=== PATIENT | male | born 1960 | race Caucasian/White ===

== ENCOUNTER 2021-08-23 21:02 | Emergency (ER) | payer OTHER ==
[~2021-08-23] VITALS: Ht 167.6 cm; Wt 89.8 kg
--- NOTE | 2021-08-23 21:50 | NUR ---
to bed 7. a/ox3. c/o generalized rash on BLE BUE AND ABDOMEN. STARTED 1 WEEK AGO. PATIENT STATES HIS STARTED USING A NEW DETERGANT AT HOME. PATIENT WAS EDUCATED TO STOP USING THE DETERGANT .
[2021-08-23] MEDS ORDERED: predniSONE 20 MG TABLET PO ONE (22:00)
[2021-08-23] MEDS ORDERED: FAMOTIDINE (20 MG) 20 MG TABLET PO ONE (22:00)
[2021-08-23] MEDS ORDERED: FAMOTIDINE (20 MG) 20 MG TABLET ONE (22:04)
[2021-08-23] MEDS ORDERED: predniSONE 20 MG TABLET ONE (22:04)
[2021-08-23] MEDS ORDERED: PRED50TA PO (22:15)
[2021-08-23] MEDS ORDERED: FAMO-131 PO (22:15)
[2021-08-23] MEDS ORDERED: DIPH25CA83 PO (22:15)
--- NOTE | 2021-08-23 22:30 | NUR ---
Patient discharged to home in stable condition. Written and verbal after care instructions given. Patient verbalizes understanding of instruction. RX GIVEN AND EXPLAINED. ambulated out of ER with a steady gait.
[2021-08-23 22:31] VITALS: BP 130/72
== END 2021-08-23 22:32 | disposition home or self-care (01) ==
LOC: ER 21:04
DX: L50.9 Urticaria, unspecified (principal); T49.2X5A Adverse effect of local astringents and local detergents, initial encounter; Y92.89 Other specified places as the place of occurrence of the external cause
CPT/HCPCS: 99283; J7512

== ENCOUNTER 2022-05-30 12:08 | Inpatient (IN) | payer OTHER ==
[~2022-05-30] VITALS: Ht 182.9 cm; Wt 83.0 kg
[~2022-05-30 12:08] MED LIST: DIPH25CA83 PO; FAMO-131 PO; PRED50TA PO
[2022-05-30] MEDS ORDERED: ONDANSETRON HCL/PF 4 MG/2 ML VIAL IVP ONE (14:30)
[2022-05-30] MEDS ORDERED: IV NS 0.9% 1,000 ML BAG IV ONE (14:30)
[2022-05-30] MEDS ORDERED: MORPHINE SULFATE INJ 2 MG/ML DISP.SYRIN IV ONE ×2 (14:30→21:00)
[2022-05-30] MEDS ORDERED: MORPHINE SULFATE INJ 4 MG/ML DISP.SYRIN ONE ×2 (14:32→21:08)
[2022-05-30] MEDS ORDERED: ONDANSETRON HCL/PF 4 MG/2 ML VIAL ONE ×2 (14:32→21:08)
--- NOTE | 2022-05-30 14:40 | NUR ---
DR. ESCAMILLA AT BEDSIDE FOR EVAL
[2022-05-30] MEDS ORDERED: ENAL10TA39 PO (14:49)
[2022-05-30] MEDS ORDERED: METF-440 PO (14:49)
--- NOTE | 2022-05-30 14:51 | NUR ---
COVID ANTIGEN SWAB DONE AND SENT TO THE LAB
[2022-05-30 15:00] LABS: BASOPHILS # (AUTO) 0.1 K/uL (0.0-0.2); BASOPHILS % (AUTO) 0.7 % (0.0-2.0); EOSINOPHILS % (AUTO) 2.2 % (0.0-6.0); HEMATOCRIT 28 % (39-51); LYMPHOCYTES # (AUTO) 2.7 K/uL (0.8-4.8); LYMPHOCYTES % (AUTO) 28.5 % (20.0-44.0); MEAN CORPUSCULAR HGB CONC 33 g/dl (31.0-36.0); MEAN CORPUSCULAR VOLUME 78 fL (80-96); MONOCYTES # (AUTO) 0.9 K/uL (0.1-1.30); NEUTROPHILS # (AUTO) 5.5 K/uL (1.8-8.9); NEUTROPHILS % (AUTO) 58.6 % (43.0-81.0); PLATELET COUNT (AUTO) 348 K/uL (150-450); RED BLOOD CELL COUNT(AUTO) 3.54 MIL/uL (4.5-6.0); WHITE BLOOD COUNT (AUTO) 9.4 K/uL (4.3-11.0)
[2022-05-30 15:05] LABS: CALCIUM, SERUM 9.2 mg/dL (8.5-10.1); CREATININE 0.8 mg/dL (0.6-1.3); POTASSIUM 4.2 mmol/L (3.5-5.1)
[2022-05-30 15:11] LABS: ALBUMIN 2.9 g/dL (3.4-5.0); BILIRUBIN,DIRECT 0.2 mg/dL (0.0-0.2); BILIRUBIN,TOTAL 0.5 mg/dL (0.2-1.0); TOTAL PROTEIN, SERUM 7.7 g/dL (6.4-8.2)
--- NOTE | 2022-05-30 18:02 | NUR ---
PAGED DR. JHA REGARDING PEER TO PEER WITH DR. ESCAMILLA AWAITING A CALL BACK [phone] (PRESS 1 THEN 4)
--- NOTE | 2022-05-30 19:25 | NUR ---
called [facility] and paged dr Guy
--- NOTE | 2022-05-30 19:31 | NUR ---
BROUGHT IN FOR C/O ABD PAIN/BLOATING AND N/V. PATIENT AWAKE AND ALERT X4 BREATHIING EVEN AND UNLABORED. PT IN GOWN AND REMAINS ON MONITOR AND V/S WNL.
--- NOTE | 2022-05-30 19:50 | NUR ---
EPIC PAGED PER DR ESCAMILLA.
[2022-05-30] MEDS ORDERED: ONDANSETRON HCL/PF 4 MG/2 ML VIAL IV ONE (21:00)
--- NOTE | 2022-05-30 21:22 | NUR ---
REPORT GIVEN TO BIJU
--- NOTE | 2022-05-30 21:29 | NUR ---
PT TRANSFERRING TO 325 VIA ACLS PROTOCOL. VSS. ALL BELONGINGS WITH PT.
--- NOTE | 2022-05-30 21:45 | NUR ---
MS INDUSTRIAL GAS PRODUCTION OPERATOR NOTE PATIENT ARRIVED ON FLOOR FROM ER WITH AT BEDSIDE, ALERT/ORIENTED X 4, PT PORTUGUESE SPEAKING, PT ABLE TO MAKE NEEDS KNOWN. PATIENT STABLE ON RA, NO S/S OF DISTRESS OR SOB NOTED, BREATHING EVEN AND UNLABORED. IV ACCESS ON LEFT AC #18G INTACT AND FLUSHING WELL. PATIENT IS AMBULATORY, DOESN'T USE ASSISTIVE DEVICE AT HOME. PATIENT REPORTS HARD OF HEARING RIGHT EAR HOWEVER DOESN'T HAVE A HEARING AID. MEDICAL HX OF HTN, DM AND HERNIA REPAIR. PATIENT DENIES USE OF SMOKING, DRINKING AND RECREATIONAL DRUGS. PATIENT DOESN'T USE GLASSES, DOESN'T HAVE A PACEMAKER. PATIENT HAS UPPER DENTURES. PATIENT FULLY VACCINATED FOR COVID BUT NOT FLU OR PNEUMONIA. PATIENT BELONGINGS DOCUMENTED AND BELONGINGS LIST PLACED IN CHART. SAFETY MEASURES IN PLACE: CALL LIGHT WITHIN REACH, SIDE RAILS UP X 2, BED LOCKED IN LOWEST POSITION, TABLE WITHIN REACH. NO ORDERS AT THIS TIME, WILL CONTACT MD FOR ORDERS
[2022-05-30 22:00] VITALS: BP 140/75
[2022-05-30] MEDS ORDERED: ACETAMINOPHEN 325 MG TABLET PO PRN (22:30)
[2022-05-30] MEDS ORDERED: Z GUARD REMEDY 4 OZ OINT TP PRN (22:30)
[2022-05-30] MEDS ORDERED: ONDANSETRON HCL/PF 4 MG/2 ML VIAL IVP PRN (22:30)
[2022-05-31 06:54] LABS: BASOPHILS # (AUTO) 0.1 K/uL (0.0-0.2); BASOPHILS % (AUTO) 0.7 % (0.0-2.0); EOSINOPHILS % (AUTO) 2.8 % (0.0-6.0); HEMATOCRIT 26 % (39-51); HEMOGLOBIN 8.3 g/dL (13.5-17.5); LYMPHOCYTES # (AUTO) 2.3 K/uL (0.8-4.8); LYMPHOCYTES % (AUTO) 26.7 % (20.0-44.0); MEAN CORPUSCULAR HGB CONC 33 g/dl (31.0-36.0); MEAN CORPUSCULAR VOLUME 80 fL (80-96); MONOCYTES # (AUTO) 0.9 K/uL (0.1-1.30); MONOCYTES % (AUTO) 10.9 % (2.0-12.0); NEUTROPHILS % (AUTO) 58.9 % (43.0-81.0); PLATELET COUNT (AUTO) 318 K/uL (150-450); RED BLOOD CELL COUNT(AUTO) 3.21 MIL/uL (4.5-6.0); WHITE BLOOD COUNT (AUTO) 8.5 K/uL (4.3-11.0)
--- NOTE | 2022-05-31 07:48 | NUR ---
MS RN CLOSING NOTE PATIENT AWAKE IN BED, ALERT/ORIENTED X 4, PT ABLE TO MAKE NEEDS KNOWN, PT GREENLANDIC SPEAKING. PATIENT STABLE ON RA, NO S/S OF DISTRESS OR SOB NOTED, BREATHING EVEN AND UNLABORED. LEFT AC #18G INTACT AND INFUSING LR @ 80 ML/HR. NO SIGNIFICANT CHANGES THROUGHOUT SHIFT, NO COMPLAINTS OF PAIN DURING SHIFT. PATIENT AMBULATORY TO BATHROOM. PATIENT REFUSED SKIN ASSESSMENT BUT STATED SKIN IS INTACT AND HAS NO WOUNDS. SAFETY MEASURES IN PLACE: CALL LIGHT WITHIN REACH, SIDE RAILS UP X 2, BED LOCKED IN LOWEST POSITION. ENDORSED TO DAY SHIFT NURSE FOR CONTINUITY OF CARE
[2022-05-31 07:50] LABS: THYROID STIMULATING HORMONE 1.276 uIU/mL (0.358-3.74)
--- NOTE | 2022-05-31 08:04 | NUR ---
RN OPENING NOTE PATIENT AWAKE IN BED RESTING, A/O X 4. NO S/S OF PAIN NOTED AT THIS TIME. ON ROOM AIR, NO DISTRESS OR SHORTNESS OF BREATH NOTED. IV ACCESS, LAC #18G, INTACT PATENT AND FLUSHING WELL. FALL AND SAFETY MEASURES IN PLACE, BED ALARM ON, BED IN LOW AND LOCK POSITION, CALL LIGHT AND TABLE WITHIN EASY REACH, SIDE RAILS UP X2. WILL CONTINUE TO MONITOR.
[2022-05-31 08:35] LABS: TOTAL PROTEIN, SERUM 6.8 g/dL (6.4-8.2)
[2022-05-31 08:48] LABS: POTASSIUM 4.4 mmol/L (3.5-5.1)
[2022-05-31 08:49] LABS: BILIRUBIN,TOTAL 0.6 mg/dL (0.2-1.0); CREATININE 0.8 mg/dL (0.6-1.3); PHOSPHORUS 4.4 mg/dL (2.5-4.9)
[2022-05-31 08:50] LABS: ALBUMIN 2.5 g/dL (3.4-5.0); MAGNESIUM 1.6 mg/dL (1.8-2.4)
[2022-05-31] MEDS: PANTOPRAZOLE 40 MG TABLET.DR PO SCH (09:09)
[2022-05-31] MEDS: ENALAPRIL MALEATE (10 MG) 10 MG TABLET PO SCH (09:10)
[2022-05-31] MEDS: IV LR 1000 ML 1,000 ML IV PRN (12:11)
[2022-05-31] MEDS: Magnesium 1GM/D5W 100ML PREMIX 100 ML IV SCH ×2 (13:15→14:42)
[2022-05-31 13:43] LABS: FERRITIN 41 ng/mL (8-388)
--- NOTE | 2022-05-31 19:10 | NUR ---
RN NOTES RECEIVED REPORT FROM MORNING RN. PATIENT IN BED A/O X4 ABLE TO MAKE NEEDS KNOWN. ON ROOM AIR SATING 98% NO SOB NO DISTRESS NOTED AT THIS TIME. WITH IV ACCESS AT L AC # 18 PATENT FLUSHES WELL. WITH ONGOING IVF LR @ 80CC/HR. VITAL SIGNS TAKEN AND RECORDED AFEBRILE. ALL SAFETY MEASURES IN PLACE AT ALL TIMES. BED ON LOWEST POSITION AND LOCKED. PATIENT INSTRUCTED NOT TO DRINK ANY FLUID AFTER MIDNIGHT. WILL CLOSELY MONITOR THE PATIENT
--- NOTE | 2022-05-31 19:44 | NUR ---
RN CLOSING NOTE PATIENT AWAKE IN BED RESTING, A/O X 4. NO S/S OF PAIN NOTED AT THIS TIME. ON ROOM AIR, NO DISTRESS OR SHORTNESS OF BREATH NOTED. IV ACCESS, LAC #18G, INTACT PATENT AND FLUSHING WELL. ALL SCHEDULE MEDICATIONS ADMINISTERED. FALL AND SAFETY MEASURES IN PLACE, BED ALARM ON, BED IN LOW AND LOCK POSITION, CALL LIGHT AND TABLE WITHIN EASY REACH, SIDE RAILS UP X2. WILL ENDORSE TO WREATH MACHINE TENDER.
[2022-05-31 20:00] VITALS: BP 141/77
[2022-05-31] MEDS: MORPHINE SULFATE INJ 2 MG/ML DISP.SYRIN IV PRN (20:56)
[2022-06-01] MEDS: MORPHINE SULFATE INJ 2 MG/ML DISP.SYRIN IV PRN ×2 (05:12→22:31)
[2022-06-01] MEDS: IV LR 1000 ML 1,000 ML IV PRN (06:01)
[2022-06-01 06:25] LABS: BASOPHILS % (AUTO) 0.6 % (0.0-2.0); EOSINOPHILS % (AUTO) 3.9 % (0.0-6.0); HEMATOCRIT 26 % (39-51); HEMOGLOBIN 8.5 g/dL (13.5-17.5); LYMPHOCYTES # (AUTO) 2.1 K/uL (0.8-4.8); LYMPHOCYTES % (AUTO) 27.7 % (20.0-44.0); MEAN CORPUSCULAR HGB CONC 33 g/dl (31.0-36.0); MEAN CORPUSCULAR VOLUME 79 fL (80-96); MONOCYTES # (AUTO) 0.9 K/uL (0.1-1.30); MONOCYTES % (AUTO) 11.4 % (2.0-12.0); NEUTROPHILS # (AUTO) 4.3 K/uL (1.8-8.9); NEUTROPHILS % (AUTO) 56.4 % (43.0-81.0); PLATELET COUNT (AUTO) 328 K/uL (150-450); RED BLOOD CELL COUNT(AUTO) 3.31 MIL/uL (4.5-6.0); WHITE BLOOD COUNT (AUTO) 7.6 K/uL (4.3-11.0)
--- NOTE | 2022-06-01 06:54 | NUR ---
RN NOTES PATIENT REMAINS STABLE NO SIGNIFICANT CHANGES IN HEALTH CONDITION. ALL DUE MEDS GIVEN ORDERED. WITH IV ACCESS AT L AC G #18 PATENT RUNNING LR @80CC/HR. PATIENT IS ON NPO FOR POSSIBLE CT CHEST AND ABDOMEN TODAY. ALL SAFETY MEASURES IN PLACE AT ALL TIMES. BED ON LOWEST POSITION AND LOCKED. FREQUENT VISUAL MONITORING RENDERED. WILL ENDORSED TO MORNING SHIFT FOR GREGG
[2022-06-01 06:57] LABS: CALCIUM, SERUM 8.9 mg/dL (8.5-10.1); CREATININE 0.8 mg/dL (0.6-1.3); MAGNESIUM 1.7 mg/dL (1.8-2.4); POTASSIUM 4.3 mmol/L (3.5-5.1)
[2022-06-01 08:00] VITALS: BP 117/70
[2022-06-01] MEDS: PANTOPRAZOLE 40 MG TABLET.DR PO SCH (08:54)
[2022-06-01] MEDS: ENALAPRIL MALEATE (10 MG) 10 MG TABLET PO SCH (08:55)
[2022-06-01 09:07] LABS: IMMUNOGLOBULIN A, SERUM 234 mg/dL (61-437); IMMUNOGLOBULIN G, SERUM 1910 mg/dL (603-1613); IMMUNOGLOBULIN M, SERUM 142 mg/dL (20-172)
[2022-06-01] MEDS ORDERED: IOHEXOL-300 100 ML VIAL IV ONE (09:26)
[2022-06-01] MEDS ORDERED: CT SWABBABLE VALVE TRANS SET 1 EA INFUS.SET MC ONE (09:27)
[2022-06-01] MEDS ORDERED: IV NS 0.9% 250 ML IV ONE (09:27)
[2022-06-01 10:07] LABS: AFP, TUMOR MARKER 2.5 ng/mL (0.0-8.4)
--- NOTE | 2022-06-01 10:30 | NUR ---
RN NOTE PATIENT IS NOT IN HIS ROOM, PATIENT WAS TAKEN TO GET A CT.
[2022-06-01] MEDS: Magnesium 1GM/D5W 100ML PREMIX 100 ML IV SCH ×2 (11:37→13:31)
--- NOTE | 2022-06-01 19:00 | NUR ---
RN CLOSING NOTE PATIENT AWAKE IN BED RESTING, A/O X 4. NO S/S OF PAIN NOTED AT THIS TIME. ON ROOM AIR, NO DISTRESS OR SHORTNESS OF BREATH NOTED. IV ACCESS, LAC #18G, INTACT PATENT AND FLUSHING WELL. ALL SCHEDULE MEDICATIONS ADMINISTERED. FALL AND SAFETY MEASURES IN PLACE, BED ALARM ON, BED IN LOW AND LOCK POSITION, CALL LIGHT AND TABLE WITHIN EASY REACH, SIDE RAILS UP X2. WILL ENDORSE TO AUTOMATED MANUFACTURING INSTRUCTOR.
--- NOTE | 2022-06-01 19:30 | NUR ---
MS RN OPENING NOTE RECEIVED PATIENT AWAKE IN BED. A/O X4 AND ABLE TO MAKE NEEDS KNOWN. AT BEDSIDE. PT STABLE ON ROOM AIR. NO SOB OR S/S OF RESPIRATORY DISTRESS. BREATHING EVEN AND UNLABORED. IV ACCESS LAC #18G RUNNING LR @ 80 ML/HR, INTACT AND PATENT. SAFETY PRECAUTIONS IN PLACE. BED IN LOWEST LOCKED POSITION, HOB ELEVATED, SIDE RAILS UP X2, AND CALL LIGHT AND TABLE WITHIN REACH. ALL NEEDS MET AT THIS TIME.
[2022-06-01 20:00] VITALS: BP 139/69
--- NOTE | 2022-06-01 22:31 | NUR ---
RN NOTE PT COMPLAINED OF PAIN 8/10 OF THE ABDOMEN. ADMINISTERED MORPHINE 2 MG FOR SEVERE PAIN. MADE COMFORTABLE IN BED. ALL NEEDS MET AT THIS TIME.
[2022-06-02] MEDS: IV LR 1000 ML 1,000 ML IV PRN ×2 (00:33→17:58)
[2022-06-02 03:50] VITALS: BP 139/69
[2022-06-02 06:07] LABS: *SPE A/G RATIO 0.6 (0.7-1.7); *SPE ALPHA-1-GLOBULIN 0.5 g/dL (0.0-0.4); *SPE ALPHA-2-GLOBULIN 0.8 g/dL (0.4-1.0); *SPE BETA GLOBULIN 1.3 g/dL (0.7-1.3); *SPE M-SPIKE Not Observed g/dL (Not Observed)
--- NOTE | 2022-06-02 06:47 | NUR ---
MS RN CLOSING NOTE PATIENT AWAKE IN BED. A/O X4 AND ABLE TO MAKE NEEDS KNOWN. PT STABLE ON ROOM AIR. NO SOB OR S/S OF RESPIRATORY DISTRESS. BREATHING EVEN AND UNLABORED. IV ACCESS LAC #18G RUNNING LR @ 80 ML/HR, INTACT AND PATENT. FOR CT NEEDLE BIOPSY OF LIVER TODAY. KEPT NPO AFTER MIDNIGHT. CONSENTS SIGNED. ALL DUE MEDS GIVEN ORDERED. SAFETY PRECAUTIONS IN PLACE AT ALL TIMES. BED IN LOWEST LOCKED POSITION, HOB ELEVATED, SIDE RAILS UP X2, AND CALL LIGHT AND TABLE WITHIN REACH. ALL NEEDS MET AT THIS TIME AND WILL ENDORSE TO ONCOMING NURSE FOR GREGG.
[2022-06-02 07:03] LABS: ALBUMIN 2.6 g/dL (3.4-5.0); BILIRUBIN,DIRECT 0.3 mg/dL (0.0-0.2); BILIRUBIN,TOTAL 0.7 mg/dL (0.2-1.0); CREATININE 0.8 mg/dL (0.6-1.3); MAGNESIUM 1.7 mg/dL (1.8-2.4); PHOSPHORUS 4.3 mg/dL (2.5-4.9); POTASSIUM 4.3 mmol/L (3.5-5.1); TOTAL PROTEIN, SERUM 7.4 g/dL (6.4-8.2)
--- NOTE | 2022-06-02 07:25 | NUR ---
RN OPENING NOTES RECEIVED PATIENT IN BED, AWAKE, A/O X4, VERBALLY RESPONSIVE. NO SIGNS OF ACUTE DISTRESS NOTED. ON ROOM AIR, TOLERATING WELL. NO SOB NOTED, BREATHING EVEN AND UNLABORED. NOTED WITH IV ACCESS ON LEFT AC #18G, INTACT AND PATENT, WITH LR @80 ML/HR RUNNING. DENIES ANY PAIN AT THIS TIME. SAFETY MEASURE PROVIDED. BED IN LOWEST AND LOCKED POSITION, SIDE RAILS UP, CALL LIGHT PLACED WITHIN EASY REACH. WILL CONTINUE TO MONITOR PATIENT.
[2022-06-02 07:32] LABS: BASOPHILS # (AUTO) 0.1 K/uL (0.0-0.2); BASOPHILS % (AUTO) 0.7 % (0.0-2.0); EOSINOPHILS % (AUTO) 3.9 % (0.0-6.0); HEMATOCRIT 27 % (39-51); HEMOGLOBIN 8.8 g/dL (13.5-17.5); LYMPHOCYTES # (AUTO) 2.3 K/uL (0.8-4.8); LYMPHOCYTES % (AUTO) 27.6 % (20.0-44.0); MEAN CORPUSCULAR HGB CONC 33 g/dl (31.0-36.0); MEAN CORPUSCULAR VOLUME 79 fL (80-96); MONOCYTES # (AUTO) 0.9 K/uL (0.1-1.30); MONOCYTES % (AUTO) 11.4 % (2.0-12.0); NEUTROPHILS # (AUTO) 4.6 K/uL (1.8-8.9); NEUTROPHILS % (AUTO) 56.4 % (43.0-81.0); PLATELET COUNT (AUTO) 344 K/uL (150-450); RED BLOOD CELL COUNT(AUTO) 3.42 MIL/uL (4.5-6.0); WHITE BLOOD COUNT (AUTO) 8.2 K/uL (4.3-11.0)
[2022-06-02] MEDS: PANTOPRAZOLE 40 MG TABLET.DR PO SCH (08:23)
[2022-06-02] MEDS: ENALAPRIL MALEATE (10 MG) 10 MG TABLET PO SCH (08:45)
[2022-06-02] MEDS: Magnesium 1GM/D5W 100ML PREMIX 100 ML IV SCH ×2 (10:22→11:35)
[2022-06-02] MEDS: MORPHINE SULFATE INJ 2 MG/ML DISP.SYRIN IV PRN (16:33)
--- NOTE | 2022-06-02 18:53 | NUR ---
RN CLOSING NOTES PATIENT IN BED, AWAKE, A/O X4, VERBALLY RESPONSIVE. NO SIGNS OF ACUTE DISTRESS NOTED. REMAINS STABLE ON ROOM AIR. NO SOB NOTED, BREATHING EVEN AND UNLABORED. IV ACCESS ON LEFT AC #18G, INTACT AND PATENT, WITH LR @80 ML/HR RUNNING. ALL DUE MEDS GIVEN, MEDICATED FOR PAIN NEEDED. SAFETY MEASURE PROVIDED. BED IN LOWEST AND LOCKED POSITION, SIDE RAILS UP, CALL LIGHT PLACED WITHIN EASY REACH. WILL ENDORSE TO NEXT SHIFT FOR CONTINUITY OF CARE.
--- NOTE | 2022-06-02 19:40 | NUR ---
MS/RN OPENING NOTE RECEIVED PATIENT RESTING IN BED. AWAKE, ALERT AND ORIENTED X 4. ABLE TO MAKE NEEDS KNOWN. DENIES PAIN AT THIS TIME. CONTINUES ON ROOM AIR WITH NO S/SX OF RESPIRATORY DISTRESS NOTED. IV ACCESS TO LEFT AC #18G INTACT AND PATENT. CONTINUES ON IVF LR @ 80ML/HR. CONTINUES ON REGULAR DIET WITH NO S/SX OF ASPIRATION NOTED. PATIENT IS AMBULATORY WITH STEADY GAIT. CALL LIGHT WITHIN REACH. ASPIRATION, FALL AND SAFETY PRECAUTIONS MAINTAINED. ALL NEEDS ATTENDED TO AT THIS TIME.
[2022-06-02 20:00] VITALS: BP 122/70
--- NOTE | 2022-06-02 21:00 | NUR ---
MS/RN NOTE PATIENT WITH C/O INSOMNIA. NO SLEEPING MEDICATION ORDERED. NOTIFIED SUPERVISOR DRYING AND WINDING MD FLOYD WITH NEW ORDER FOR TRAZODONE 50MG QHS PRN. ORDER INPUTTED AND CARRIED OUT.
[2022-06-02] MEDS ORDERED: TRAZODONE 50 MG TABLET PO PRN (21:25)
[2022-06-03] MEDS: IV LR 1000 ML 1,000 ML IV PRN ×2 (05:57→21:41)
[2022-06-03 06:30] LABS: BASOPHILS % (AUTO) 0.5 % (0.0-2.0); HEMATOCRIT 27 % (39-51); HEMOGLOBIN 8.7 g/dL (13.5-17.5); LYMPHOCYTES # (AUTO) 2.3 K/uL (0.8-4.8); MEAN CORPUSCULAR HGB CONC 32 g/dl (31.0-36.0); MEAN CORPUSCULAR VOLUME 79 fL (80-96); MONOCYTES # (AUTO) 0.9 K/uL (0.1-1.30); MONOCYTES % (AUTO) 11.5 % (2.0-12.0); NEUTROPHILS # (AUTO) 4.3 K/uL (1.8-8.9); PLATELET COUNT (AUTO) 357 K/uL (150-450); RED BLOOD CELL COUNT(AUTO) 3.46 MIL/uL (4.5-6.0); WHITE BLOOD COUNT (AUTO) 7.8 K/uL (4.3-11.0)
--- NOTE | 2022-06-03 06:30 | NUR ---
MS/RN CLOSING NOTE PATIENT CURRENTLY SLEEPING IN BED. ALERT AND ORIENTED X 4. ABLE TO MAKE NEEDS KNOWN. DENIES PAIN AT THIS TIME. CONTINUES ON ROOM AIR WITH NO S/SX OF RESPIRATORY DISTRESS NOTED. IV ACCESS TO LEFT AC #18G INTACT AND PATENT. CONTINUES ON IVF LR @ 80ML/HR. CONTINUES ON REGULAR DIET WITH NO S/SX OF ASPIRATION NOTED. PATIENT IS AMBULATORY WITH STEADY GAIT. CALL LIGHT WITHIN REACH. ASPIRATION, FALL AND SAFETY PRECAUTIONS MAINTAINED. WILL ENDORSE PLAN OF CARE TO ONCOMING SHIFT RN.
[2022-06-03 06:45] LABS: CALCIUM, SERUM 9.3 mg/dL (8.5-10.1); CREATININE 0.9 mg/dL (0.6-1.3); MAGNESIUM 1.6 mg/dL (1.8-2.4); PHOSPHORUS 3.8 mg/dL (2.5-4.9); POTASSIUM 4.2 mmol/L (3.5-5.1)
[2022-06-03 08:00] VITALS: BP 93/60
--- NOTE | 2022-06-03 08:10 | NUR ---
RN OPENING NOTE PATIENT RECEIVED IN BED AWAKE. A/O X4. NO RESPIRATORY DISTRESS OR SOB OBSERVED OR REPORTED. NO C/O PAIN. IV ACCESS SITE TO LAC PATENT AND FLOWING WELL. NO S/SX OF INFILTRATION . SAFETY MEASURES IN PLACE WITH BED AT LOWEST POSITION AND LOCKED. SIDERAIL UP AND CALL LIGHT WITHIN REACH. WILL CONTINUE TO MONITOR.
[2022-06-03] MEDS: PANTOPRAZOLE 40 MG TABLET.DR PO SCH (08:52)
[2022-06-03] MEDS: ENALAPRIL MALEATE (10 MG) 10 MG TABLET PO SCH (08:53)
[2022-06-03] MEDS: Magnesium 1GM/D5W 100ML PREMIX 100 ML IV SCH ×2 (08:55→10:02)
[2022-06-03 12:53] LABS: OCCULT BLOOD STOOL NEGATIVE (NEGATIVE)
[2022-06-03] MEDS: MORPHINE SULFATE INJ 2 MG/ML DISP.SYRIN IV PRN (13:26)
[2022-06-03] MEDS: SOD FERRIC GLUC 125 MG in IV NS 0.9% 100 ML IV SCH (14:39)
[2022-06-03 16:30] VITALS: BP 108/63
--- NOTE | 2022-06-03 19:16 | NUR ---
RN CLOSING NOTE PATIENT A/O X4. NO RESPIRATORY DISTRESS OBSERVED THROUGHOUT SHIFT. C/O PAIN TO LOWER BACK; 8/10 PAIN LEVEL. RECEIVED PRN MORPHINE @ 1330. MEDICATION EFFECTIVE PATIENT HAD NO OTHER C/O PAIN FOR REMAINDER OF SHIFT. RECEIVED TWO SCHEDULED DOSES OF MAGNESIUM VIA IV. TOLERATED WELL. PATIENT TOLERATED ALL OTHER SCHEDULED MEDICATIONS AND TREATMENTS GIVEN WELL. SAFETY MEASURES REMAIN IN PLACE WITH BED N LOWEST POSITION AND LOCKED. SAFETY RAILS UP X2 AND CALL LIGHT WITHIN REACH. WILL CONTINUE TO MONITOR.
[2022-06-03 20:00] VITALS: BP 132/75
--- NOTE | 2022-06-03 23:53 | NUR ---
MS RN OPENING NOTES: RECEIVED PATIENT AWAKE IN BED ACCOMPANIED BY FAMILY, BED IN LOW POSITION CALL LIGHTS WITHIN REACH, NO COMPLAIN OF PAIN AND DISCOMFORT AT THIS TIME, ON ROOM AIR SATURATING WELL, WITH IV LINE AT LAC#18 WITH ONGOING PLR@80ML/HR INFUSING WELL, PATIENT IS A/OX4 ABLE TO MAKE NEEDS KNOWN, AMBULATORY WITH SUPERVISION, PATIENT KEPT CLEAN AND DRY ALL NEEDS MET WILL CONTINUE TO MONITOR.
[2022-06-04 06:17] LABS: BASOPHILS # (AUTO) 0.1 K/uL (0.0-0.2); BASOPHILS % (AUTO) 0.7 % (0.0-2.0); HEMATOCRIT 26 % (39-51); HEMOGLOBIN 8.5 g/dL (13.5-17.5); LYMPHOCYTES # (AUTO) 2.1 K/uL (0.8-4.8); LYMPHOCYTES % (AUTO) 27.9 % (20.0-44.0); MEAN CORPUSCULAR HGB CONC 32 g/dl (31.0-36.0); MEAN CORPUSCULAR VOLUME 79 fL (80-96); MONOCYTES # (AUTO) 0.9 K/uL (0.1-1.30); MONOCYTES % (AUTO) 11.4 % (2.0-12.0); NEUTROPHILS # (AUTO) 4.2 K/uL (1.8-8.9); PLATELET COUNT (AUTO) 350 K/uL (150-450); RED BLOOD CELL COUNT(AUTO) 3.34 MIL/uL (4.5-6.0); WHITE BLOOD COUNT (AUTO) 7.7 K/uL (4.3-11.0)
--- NOTE | 2022-06-04 06:26 | NUR ---
MS RN OPENING NOTES: PATIENT SLEEP IN BED COMFORTABLY, AROUSABLE TO VERBAL STIMULI, BED IN LOW POSITION, CALL LIGHTS WITHIN REACH, ON ROOM AIR SATURATING WELL, PATIENT IS A/OX4 AMBULATORY, ABLE TO MAKE NEEDS KNOWN, WITH IV LINE AT LAC#18 WITH [id number]@80ML/HR INFUSING WELL, PATIENT KEPT CLEAN AND DRY ALL NEEDS MET ENDORSE TO INCOMING SHIFT.
[2022-06-04 06:44] LABS: CALCIUM, SERUM 8.9 mg/dL (8.5-10.1); CREATININE 0.8 mg/dL (0.6-1.3); MAGNESIUM 1.7 mg/dL (1.8-2.4); PHOSPHORUS 3.3 mg/dL (2.5-4.9)
[2022-06-04 06:49] LABS: POTASSIUM 4.2 mmol/L (3.5-5.1)
--- NOTE | 2022-06-04 07:30 | NUR ---
MS/RN OPENING NOTES RECEIVED PATIENT RESTING IN BED. AWAKE, ALERT AND ORIENTED X 4. ABLE TO MAKE NEEDS KNOWN. DENIES PAIN AT THIS TIME. CONTINUES ON ROOM AIR WITH NO S/SX OF RESPIRATORY DISTRESS NOTED. IV ACCESS TO LEFT AC #18G INTACT AND PATENT. CONTINUES ON IVF LR @ 80ML/HR. PATIENT IS AMBULATORY WITH STEADY GAIT. CALL LIGHT WITHIN REACH. ASPIRATION, FALL AND SAFETY PRECAUTIONS MAINTAINED. WILL CONTINUE TO MONITOR.
[2022-06-04] MEDS: PANTOPRAZOLE 40 MG TABLET.DR PO SCH (09:52)
[2022-06-04] MEDS: ENALAPRIL MALEATE (10 MG) 10 MG TABLET PO SCH (09:53)
[2022-06-04] MEDS: Magnesium 1GM/D5W 100ML PREMIX 100 ML IV SCH ×2 (10:00→11:06)
[2022-06-04] MEDS: SOD FERRIC GLUC 125 MG in IV NS 0.9% 100 ML IV SCH (14:54)
[2022-06-04] MEDS: IV LR 1000 ML 1,000 ML IV PRN (15:26)
[2022-06-04] MEDS: MORPHINE SULFATE INJ 2 MG/ML DISP.SYRIN IV PRN ×2 (15:26→20:56)
--- NOTE | 2022-06-04 19:01 | NUR ---
MS/RN CLOSING NOTES PATIENT RESTING IN BED. AWAKE, ALERT AND ORIENTED X 4. ABLE TO MAKE NEEDS KNOWN. DENIES PAIN AT THIS TIME. CONTINUES ON ROOM AIR WITH NO S/SX OF RESPIRATORY DISTRESS NOTED. IV ACCESS TO LEFT AC #18G INTACT AND PATENT. CONTINUES ON IVF LR @ 80ML/HR. PATIENT IS AMBULATORY WITH STEADY GAIT. DUE MEDS GIVEN. CALL LIGHT WITHIN REACH. ASPIRATION, FALL AND SAFETY PRECAUTIONS MAINTAINED. WILL ENDORSE TO NEXT SHIFT FOR GREGG.
--- NOTE | 2022-06-04 19:43 | NUR ---
RN OPENING NOTE PATIENT AWAKE IN BED W/ SPOUSE AT BEDSIDE. A/OX4. NO S/S OF DISTRESS, BREATHING W/O DIFFICULTY ON ROOM AIR. LFA #18 W/ LR 80ML/HR. SAFETY MEASURES IN PLACE: BED LOCKED, AT LOWEST POSITION, RAILS UP X2, CALL JOINER WITHIN REACH. WILL CONTINUE TO MONITOR PATIENT.
[2022-06-04 20:00] VITALS: BP 117/64
[2022-06-05] MEDS: IV LR 1000 ML 1,000 ML IV PRN (05:53)
--- NOTE | 2022-06-05 06:12 | NUR ---
RN CLOSING NOTE PATIENT IS AWAKE IN BED. A/OX4. NO S/S OF DISTRESS, BREATHING W/O DIFFICULTY ON ROOM AIR. LFA #18 INTACT AND PATENT W/ LR 80ML/HR. SAFETY MEASURES IN PLACE: BED LOCKED & AT LOWEST LEVEL, RAILS UP X2, CALL JOINER WITHIN REACH. PATIENT HAS CONTINUED TO DECLINE A SKIN/BODY CHECK AND (POSSIBLE) PICTURES FOR PICTURE DAY. WILL ENDORSE TO NEXT SHIFT FOR GREGG.
[2022-06-05 07:10] LABS: BASOPHILS % (AUTO) 0.6 % (0.0-2.0); EOSINOPHILS % (AUTO) 4.2 % (0.0-6.0); HEMATOCRIT 30 % (39-51); HEMOGLOBIN 9.2 g/dL (13.5-17.5); LYMPHOCYTES # (AUTO) 2.4 K/uL (0.8-4.8); LYMPHOCYTES % (AUTO) 28.5 % (20.0-44.0); MEAN CORPUSCULAR HGB CONC 31 g/dl (31.0-36.0); MEAN CORPUSCULAR VOLUME 79 fL (80-96); MONOCYTES # (AUTO) 0.8 K/uL (0.1-1.30); NEUTROPHILS # (AUTO) 4.8 K/uL (1.8-8.9); NEUTROPHILS % (AUTO) 56.7 % (43.0-81.0); PLATELET COUNT (AUTO) 391 K/uL (150-450); RED BLOOD CELL COUNT(AUTO) 3.73 MIL/uL (4.5-6.0); WHITE BLOOD COUNT (AUTO) 8.5 K/uL (4.3-11.0)
[2022-06-05 07:26] LABS: CALCIUM, SERUM 9.6 mg/dL (8.5-10.1); CREATININE 0.8 mg/dL (0.6-1.3); MAGNESIUM 1.7 mg/dL (1.8-2.4); POTASSIUM 4.2 mmol/L (3.5-5.1)
[2022-06-05] MEDS: PANTOPRAZOLE 40 MG TABLET.DR PO SCH (07:30)
[2022-06-05 08:00] VITALS: BP 131/74
[2022-06-05] MEDS: ENALAPRIL MALEATE (10 MG) 10 MG TABLET PO SCH (08:20)
--- NOTE | 2022-06-05 09:44 | NUR ---
MS RN OPENING NOTES RECEIVED PATIENT IN BED, AWAKE, A/O X4, KYRGYZ SPEAKING. PATIENT ON ROOM AIR; BREATHING EVEN AND UNLABORED; NO SOB NOTED AT THIS TIME. NO COMPLAINS OF PAIN. PATIENT IS NPO WAITING FOR BIOPSY. IV ACCESS IN LFA G # 18 RUNNING LR @80 MLS/HR. SAFETY PRECAUTIONS IN PLACE; BED IN LOW POSITION AND LOCKED, RAILS UP X2, CALL LIGHT WITHIN REACH. WILL CONTINUE TO MONITOR PATIENT.
[2022-06-05] MEDS: Magnesium 1GM/D5W 100ML PREMIX 100 ML IV SCH ×2 (10:49→12:06)
[2022-06-05] MEDS: MORPHINE SULFATE INJ 2 MG/ML DISP.SYRIN IV PRN (13:15)
--- NOTE | 2022-06-05 13:18 | NUR ---
MS RN NOTES PATIENT COMPLAINING OF BACK AND ABDOMINAL PAIN 10/ POST CT GUIDED BIOPSY; REQUESTING PAIN MEDICATION. PRN MORPHINE ADMINISTERED. WILL REASSESS.
[2022-06-05] MEDS ORDERED: FERR325T24 PO (14:13)
[2022-06-05] MEDS: SOD FERRIC GLUC 125 MG in IV NS 0.9% 100 ML IV SCH (14:38)
[2022-06-05 16:00] VITALS: BP 142/78
--- NOTE | 2022-06-05 16:50 | NUR ---
MS LEAD MASON TENDER NOTES PATIENT DISCHARGED HOME IN MEDICALLY STABLE CONDITION. PATIENT A/O X4, ABLE TO MADE NEEDS KNOWN. ALL DISCHARGE PAPERWORK READY AND PHYSICIAN INSTRUCTIONS PROVIDED TO PATIENT. PATIENT SIGNED DISCHARGE PAPERWORK. BELONGINGS ACCOUNTED FOR AND FORM SIGNED WELL. IV ACCESS REMOVED FROM THE ARM. ID BANDS REMOVED WELL. PATIENT LEFT THE UNIT VIA WHEELCHAIR ACCOMPANIED BY RN AND DAUGHTER. LEFT THE HOSPITAL IN A PRIVATE CAR.
== END 2022-06-05 17:50 | disposition home or self-care (01) | DRG 281 ==
LOC: ER 12:10 → MED 20:58
PROVIDERS: ADMIT Nurse Practitioner Acute Care; ATTEND Student in an Organized Health Care Education/Training Program
PROC: 0FB03ZX Excision of Liver, Percutaneous Approach, Diagnostic (ICD-10-PCS; principal; 2022-06-05)
DX: C78.7 Secondary malignant neoplasm of liver and intrahepatic bile duct (principal); E43 Unspecified severe protein-calorie malnutrition; C79.51 Secondary malignant neoplasm of bone; K66.8 Other specified disorders of peritoneum; E88.09 Other disorders of plasma-protein metabolism, not elsewhere classified; C80.1 Malignant (primary) neoplasm, unspecified; D50.9 Iron deficiency anemia, unspecified; E11.9 Type 2 diabetes mellitus without complications; I10 Essential (primary) hypertension; K59.00 Constipation, unspecified; R74.01 Elevation of levels of liver transaminase levels; Z98.890 Other specified postprocedural states; Z79.84 Long term (current) use of oral hypoglycemic drugs; Z79.899 Other long term (current) drug therapy; R91.8 Other nonspecific abnormal finding of lung field; E27.9 Disorder of adrenal gland, unspecified
CPT/HCPCS: 36415; 71045-TC; 71260-TC; 76705-TC; 77012-TC; 80048-TC; 80053-TC; 80061-TC; 80076-TC; 82105; 82272-TC; 82378; 82607-TC; 82728-TC; 82784; 83540-TC; 83615-TC; 83690-TC; 83735-TC; 84100-TC; 84155; 84165; 84443-TC; 85025-TC; 85610-TC; 85730-TC; 86301; 86334; 86706; 86803; 87081-TC; 87340; C9803; G0378; J2270; J2405; J2916; J3475; J7030; J7050; J7120; Q9967